=== PATIENT | female | born 1990 | race Two or more races ===

== ENCOUNTER 2017-01-28 09:58 | Emergency (ER) | payer OTHER ==
[2017-01-28 10:12] VITALS: BP 124/72; PULSE 69; RESP 18; TEMP 98.6; O2SAT 98
--- NOTE | 2017-01-28 11:25 | ED PDOC ---
HPI: Abdomen Time Seen by Provider: 01/28/17 10:25 Chief Complaint (Nursing): Abdominal Pain Chief Complaint (Provider): Suprabupic pain after intercourse History Per: Patient History/Exam Limitations: no limitations Onset/Duration Of Symptoms: Hrs Outside of [place] travel?: No Current Symptoms Are (Timing): Better Severity: Severe Location Of Pain/Discomfort: Suprapubic Quality Of Discomfort: Sharp Additional Complaint(s): Pt states she has been having intermittent episode of suprapubic pain after intercourse. 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 Pt states today after intercourse pain was severe. Pt has IUD in place x 1 year. Pt denies vaginal discharge. Pt states she most recently was treated for BV. Pt also has US which showed left ovarian cyst which was benign. Past Medical History Reviewed: Historical Data, Nursing Documentation, Vital Signs Vital Signs: Last Vital Signs Temp 98.6 F 01/28/17 10:12 Pulse 69 01/28/17 10:12 Resp 18 01/28/17 10:12 BP 124/72 01/28/17 10:12 Pulse Ox 98 01/28/17 11:28 - Medical History PMH: No Chronic Diseases - Surgical History Surgical History: No Surg Hx - Family History Family History: States: No Known Family Hx - Home Medications Home Medications: Ambulatory Orders Medication Instructions Recorded Fluconazole [Diflucan] 150 mg PO ONCE #2 tab 01/28/17 - Allergies Allergies/Adverse Reactions: Allergies Allergy/AdvReac Type Severity Reaction Status Date / Time No Known Allergies Allergy Verified 01/28/17 10:24 Review of Systems ROS Statement: Except As Marked, All Systems Reviewed And Found Negative Genitourinary Female: Positive for: Pelvic Pain, Other (Dysperunia ) Physical Exam - Reviewed Nursing Documentation Reviewed: Yes Vital Signs Reviewed: Yes - Physical Exam Appears: Positive for: Well, Non-toxic, No Acute Distress Head Exam: Positive for: ATRAUMATIC, NORMAL INSPECTION, NORMOCEPHALIC Skin: Positive for: Normal Color, Warm, DRY Eye Exam: Positive for: Normal appearance ENT: Positive for: Normal ENT Inspection Neck: Positive for: Normal, Painless ROM Cardiovascular/Chest: Positive for: Regular Rate, Rhythm Respiratory: Positive for: CNT, Normal Breath Sounds Pelvic Exam: Positive for: External Exam Normal, Bimanual Exam Normal, Discharge ((+) white, clumpy on rodriguez of vaginal), Other (String of IUD not seen at cervical os). Negative for: Speculum Exam Normal Back: Positive for: Normal Inspection Extremity: Positive for: Normal ROM Neurologic/Psych: Positive for: Alert, Oriented - ECG O2 Sat by Pulse Oximetry: 98 Pulse Ox Interpretation: Normal Medical Decision Making Medical Decision Making: Preg (-) Urine (-) Cultures sent to labs X-ray: IUD in place Disposition - Clinical Impression Clinical Impression: Vulvovaginitis tom albicans - Patient ED Disposition Is Patient to be Admitted: No Counseled Patient/Family Regarding: Diagnosis, Need For Followup, Rx Given - Disposition Referrals: [employer] [Outside] Disposition: Routine/Home Disposition Time: 11:43 Condition: GOOD Prescriptions: Fluconazole [Diflucan] 150 mg PO ONCE #2 tab Instructions: Vulvovaginal Candidiasis (ED)
--- NOTE | 2017-01-28 12:33 | RAD ---
PROCEDURE: Pelvis dated 01/28/2017 HISTORY: Assess IUD COMPARISON: None. FINDINGS: BONES: The osseous structures appear intact. Normal mineralization. . No evidence of acute displaced fracture nor dislocation. JOINTS: SI joints appear intact without evidence of widening. Both femoral heads are appropriately located within the respective acetabula. OTHER FINDINGS: In situ Copper-T IUD overlying the left parasagittal lower sacrum the IMPRESSION: In situ Copper-T IUD as above.
== END 2017-01-28 12:00 | disposition home or self-care (01) ==
LOC: H.ER 09:58
DX: N76.0 Acute vaginitis (principal); R10.2 Pelvic and perineal pain